=== PATIENT | female | born 1960 | race Caucasian/White ===

== ENCOUNTER 2017-09-13 07:59 | Emergency (ER) | payer BC ==
[~2017-09-13] VITALS: Ht 162.6 cm; Wt 56.7 kg
[2017-09-13 07:59] VITALS: BP 129/70
[2017-09-13] MEDS ORDERED: TDAP [DIPH/PERTUSSIS/TET] 0.5 ML VIAL IM ONE ×2 (08:23→08:30)
[2017-09-13] MEDS ORDERED: BACI/NEOM/POLY B OINT PKT 1 UDPKT PACKET TP ONE (08:30)
== END 2017-09-13 08:34 | disposition home or self-care (01) ==
LOC: ER 08:02
DX: S61.210A Laceration without foreign body of right index finger without damage to nail, initial encounter (principal); E03.9 Hypothyroidism, unspecified; F32.9 Major depressive disorder, single episode, unspecified; Z23 Encounter for immunization; Z88.8 Allergy status to other drugs, medicaments and biological substances; Z90.89 Acquired absence of other organs; Z98.890 Other specified postprocedural states; Y29.XXXA Contact with blunt object, undetermined intent, initial encounter; Y93.89 Activity, other specified; Y92.89 Other specified places as the place of occurrence of the external cause; Y99.9 Unspecified external cause status
CPT/HCPCS: 90471; 90715; 99283; A4606; Z7610